=== PATIENT | female | born 1985 | race Caucasian/White ===

== ENCOUNTER 2021-02-14 13:43 | Emergency (ER) | payer OTHER, SELFPAY ==
--- NOTE | ~2021-02-14 | XR_ITS ---
EXAMINATION: XR FINGER, RIGHT CLINICAL INFORMATION: Evaluate for ostiomeatal COMPARISON: None TECHNIQUE: 3 views of the right middle finger. FINDINGS: The bones and soft tissues are normal. No fracture. Alignment is anatomic. Joint spaces are maintained. XR/XR finger RT min 2V IMPRESSION: Unremarkable right middle finger. Especially no bony erosive changes or periosteal thickening. No radiopaque foreign body seen either.
[2021-02-14 13:48] VITALS: BP 130/82; PULSE 79; RESP 16; TEMP 36.3; O2SAT 99; BMI 21.6
--- NOTE | 2021-02-14 14:24 | ED_ITS ---
HPI - General Adult General Chief complaint: General Medical Stated complaint: multiple complaints Time Seen by Provider: 02/14/21 14:19 Source: patient Mode of arrival: ambulatory Limitations: no limitations History of Present Illness MD complaint: ringing in ears, stomach pain, paronychia infection Onset (ago): day(s) (has felt unwell past couple of days but has been dealing with a paronychia R hand infection on keflex then bactrim since told she had fungal and klebsiella oxytoca in culture) Severity: moderate Pain Consistency: constant Relieving factors: none Exacerbating factors: none Associated symptoms: loss of appetite and weakness Treatments prior to arrival: other (bactrim since 02/10) Related Data Previous Rx's Medication Instructions Recorded levofloxacin 500 mg PO DAILY 7 Days #7 tab 02/14/21 Allergies Allergy/AdvReac Type Severity Reaction Status Date / Time No Known Allergies Allergy Verified 02/14/21 13:47 Review of Systems Review of Systems: Constitutional : No Fever, No Chills ENT/Mouth : No sore throat, No Rhinorrhea, ringing in her ears Eyes: No Eye Pain, No Swelling, No Redness Cardiovascular : No Chest Pain, No SOB Respiratory : No Cough, No Sputum Gastrointestinal : pos Nausea, No Vomiting, No Diarrhea, pos abdominal Pain Genitourinary : No Dysuria, No Hematuria Musculoskeletal : No joint pain, No Myalgias, No Joint Swelling Skin : No Skin Lesions, positive skin lesion on finger Neuro : pos Weakness, No Numbness, No Headache, pos dizziness Psych : No Anxiety, No Depression Heme/Lymph: No Bruising, No Bleeding,No Lymphadenopathy Endocrine : No Polyuria, No Polydipsia All other systems reviewed and are negative [facility] Past Medical History Attestation statement: The following information was validated with the patient. Medical History Paronychia Surgical History (Updated 02/14/21 @ 13:52 by Raiza Blue RN) H/O: hysterectomy Social History Social History (Updated 02/14/21 @ 15:18 by Laura Light DO) Patient Tobacco Use Status: Never used Tobacco Use of substances other than those prescribed or required for medical reasons: No Advance Directives: No Advance Directives Information Provided: Yes Patient : No Physical Exam Vital Signs: Vital Signs: Last Vital Signs Temp 97.4 F 02/14/21 13:48 Pulse 79 02/14/21 13:48 Resp 16 02/14/21 13:48 BP 130/82 02/14/21 13:48 Pulse Ox 99 02/14/21 13:48 Body Mass Index 21.6 Appearance: Alert. Oriented X3. No acute distress. Eyes: Pupils equal, round and reactive to light. ENT: Pharynx normal. Neck: Normal inspection. Neck supple. CVS: Normal heart rate and rhythm. Pulses normal. Respiratory: No respiratory distress. Breath sounds normal. Abdomen: Soft and mild epigastric ttp no rebound or guarding Skin: Skin warm and dry. Normal skin color. Normal skin turgor. Extremities: No lower extremity edema. No calf ttp R middle finger shiny area on proximal nail fold - nothing under the nail itself, no fluctuance felt, flat pocket felt no erythema/warmth/streaking Neuro: Oriented X 3. No motor deficit. No sensory deficit. Course Course Course Narrative: discussed with ID - sent pictures of culture and S to Dr. Sarah franklin - it is possible, would recommend levofloxacin for 7 days. WBC likely depressed due to antibiotics, LFTs stable mostly c/o some mild epigastric pain at this time will stop bactrim and start on levofloxacin for 7 days she is aware no exercising Medical Decision Making MDM Narrative Medical decision making narrative: 35 yo female with a prolonged R middle finger infection since February 02 had been on cephalexin for 4 days paronychia did not improve but it was not I/D she noted some streaking - switched to bactrim this Saturday 02/10 found to have relatively barbosa S klebsiella oxytoca had CRP drawn that was negative at this time, came in today because she has GI distress and some stomach pains, feels nauseated and dizzy, feels like she is not tolerating the bactrim well, will consult ID obtain labs, IVF, pepcid, dispo per results and findings, she is not toxic and does not appear septic at this time, finger is drained no ulcer/mass felt to suggest deeper abscess no streaking very minima l erythema, I did attempt to aspirate small area on prox nail fold but no purulence expressed she drained most of it at home with manual expression after soaks Lab Data Result diagrams: 02/14/21 14:46 07/17/21 14:46 Labs: Lab Results 02/14/21 02/14/21 02/14/21 Range/Units 14:38 14:46 14:46 WBC 4.6 L (4.8-10.8) X10*3/uL RBC 4.35 (4.20-5.50) X10*6/uL Hgb 13.1 (12.0-16.0) g/dl Hct 38.1 (37-47) % MCV 87.6 (80-98) fL MCH 30.1 (27.0-33.0) pg MCHC 34.4 (31.0-35.0) g/dl RDW 11.8 (11.0-16.0) % Plt Count 271 (160-400) X10*3/uL MPV 9.0 L (9.4-12.3) fL Immature Gran % (Auto) 0.2 (0.0-0.4) % Neut % (Auto) 42.4 L (45-73) % Lymph % (Auto) 42.2 H (20-40) % [place] % (Auto) 9.1 (2-11) % Eos % (Auto) 4.8 H (0-4) % Baso % (Auto) 1.3 (0-2) % Lymph # (Auto) 2.0 (1.2-4.9) X10*3/uL [place] # (Auto) 0.4 (0.1-1.2) X10*3/uL Eos # (Auto) 0.2 (0.0-0.4) X10*3/uL Baso # (Auto) 0.1 (0.0-0.2) X10*3/uL Abs Immat Gran (auto) 0.01 (0.00-0.03) X10*3/uL Absolute Neuts (auto) 2.0 (2.0-8.3) X10*3/uL Absolute Nucleated RBC 0.000 (0.0-0.012) X10*3/uL Nucleated RBC % (auto) 0.0 (0.0-0.2) /100WBC Sodium 139 (135-145) mmol/L Potassium 3.9 (3.3-5.1) mmol/L Chloride 104 (96-108) mmol/L Carbon Dioxide 28 (22-29) mmol/L Anion Gap 11 L (12-20) BUN 8 L (9-16) mg/dL Creatinine 0.94 (0.5-1.4) mg/dL Estim Creat Clear Calc 75.1 Estimated GFR > 60 Random Glucose 104 (60-115) mg/dL Calcium 9.6 (8.4-10.2) mg/dL Magnesium 2.2 (1.6-2.6) mg/dL Total Bilirubin 0.5 (0.0-1.0) mg/dL Direct Bilirubin 0.2 (0.0-0.5) mg/dL AST 19 (5-31) U/L ALT 9 (0-31) U/L Alkaline Phosphatase 44 (39-117) U/L Total Protein 7.6 (6.5-8.0) g/dL Albumin 4.7 (3.5-5.0) g/dL Lipase 35 (8-78) U/L Urine Color Cancelled Urine Appearance Cancelled Urine pH Cancelled Ur Specific [place] Cancelled Urine Protein Cancelled Urine Glucose (UA) Cancelled Urine Ketones Cancelled Urine Blood Cancelled Urine Nitrite Cancelled Ur Leukocyte Esterase Cancelled Urine Test (NEGATIVE) 02/14/21 02/14/21 Range/Units 14:46 14:47 WBC (4.8-10.8) X10*3/uL RBC (4.20-5.50) X10*6/uL Hgb (12.0-16.0) g/dl Hct (37-47) % MCV (80-98) fL MCH (27.0-33.0) pg MCHC (31.0-35.0) g/dl RDW (11.0-16.0) % Plt Count (160-400) X10*3/uL MPV (9.4-12.3) fL Immature Gran % (Auto) (0.0-0.4) % Neut % (Auto) (45-73) % Lymph % (Auto) (20-40) % [place] % (Auto) (2-11) % Eos % (Auto) (0-4) % Baso % (Auto) (0-2) % Lymph # (Auto) (1.2-4.9) X10*3/uL [place] # (Auto) (0.1-1.2) X10*3/uL Eos # (Auto) (0.0-0.4) X10*3/uL Baso # (Auto) (0.0-0.2) X10*3/uL Abs Immat Gran (auto) (0.00-0.03) X10*3/uL Absolute Neuts (auto) (2.0-8.3) X10*3/uL Absolute Nucleated RBC (0.0-0.012) X10*3/uL Nucleated RBC % (auto) (0.0-0.2) /100WBC Sodium (135-145) mmol/L Potassium (3.3-5.1) mmol/L Chloride (96-108) mmol/L Carbon Dioxide (22-29) mmol/L Anion Gap (12-20) BUN (9-16) mg/dL Creatinine (0.5-1.4) mg/dL Estim Creat Clear Calc Estimated GFR Random Glucose (60-115) mg/dL Calcium (8.4-10.2) mg/dL Magnesium (1.6-2.6) mg/dL Total Bilirubin (0.0-1.0) mg/dL Direct Bilirubin (0.0-0.5) mg/dL AST (5-31) U/L ALT (0-31) U/L Alkaline Phosphatase (39-117) U/L Total Protein (6.5-8.0) g/dL Albumin (3.5-5.0) g/dL Lipase (8-78) U/L Urine Color STRAW Urine Appearance CLEAR Urine pH 6.0 Ur Specific [place] <= 1.005 Urine Protein NEG Urine Glucose (UA) NEG Urine Ketones NEG Urine Blood NEG Urine Nitrite NEG Ur Leukocyte Esterase NEG Urine Test NEGATIVE (NEGATIVE) Discharge Plan Discharge Clinical Impression: Infection due to Klebsiella species Patient Disposition: Home, Self-Care Instructions: Paronychia (ED) Additional Instructions: return to ED for any worsening symptoms or concerns TAKE PROBIOTICS STOP TAKING BACTRIM, YOU DO NOT NEED TO SOAK THIS AREA ANYMORE YOU CANNOT EXERCISE WHILE ON THIS ANTIBIOTIC IT CAN CAUSE A TENDON INJURY Prescriptions: New levofloxacin 500 mg tablet 500 mg PO DAILY 7 Days Qty: 7 RF: 0 Referrals: Kae Ibrahim MD [Physician] - 2 weeks Stand Alone Forms: Work/School Release
[2021-02-14 14:54] LABS: Glucose Urine UA NEG (NEG); Leukocyte Esterase Urine NEG (NEG); Nitrite Urine NEG (NEG); Specific Gravity - Urine <= 1.005 (1.005-1.025); Urine Blood NEG (NEG); Urine Ketones NEG (NEG); Urine Protein NEG (NEG-TRACE)
[2021-02-14 14:55] LABS: Basophils Absolute Auto 0.1 X10*3/uL (0.0-0.2); Basophils Percent Auto 1.3 % (0-2); Eosinophils Absolute Auto 0.2 X10*3/uL (0.0-0.4); Eosinophils Percent Auto 4.8 % (0-4); Hematocrit 38.1 % (37-47); Hemoglobin 13.1 g/dl (12.0-16.0); Imm Gran Abs Auto 0.01 X10*3/uL (0.00-0.03); Imm Gran Pct Auto 0.2 % (0.0-0.4); Lymphocytes Percent Auto 42.2 % (20-40); MANUAL DIFF FLAG NO; Mean Corpuscular HGB Conc 34.4 g/dl (31.0-35.0); Mean Corpuscular Hemoglobin 30.1 pg (27.0-33.0); Mean Corpuscular Volume 87.6 fL (80-98); Monocytes Absolute Auto 0.4 X10*3/uL (0.1-1.2); Monocytes Percent Auto 9.1 % (2-11); Neutrophils Percent Auto 42.4 % (45-73); Platelet Count 271 X10*3/uL (160-400); Red Blood Count 4.35 X10*6/uL (4.20-5.50); Red Cell Distribution Width 11.8 % (11.0-16.0); White Blood Count 4.6 X10*3/uL (4.8-10.8)
[2021-02-14 14:56] LABS: Appearance Urine CLEAR; Color Urine STRAW
[2021-02-14 14:57] LABS: UPreg QC Valid YES; Urine Pregnancy NEGATIVE (NEGATIVE)
[2021-02-14] MEDS: Famotidine/PF 20 MG/2 ML VIAL IVPUSH (15:03)
[2021-02-14] MEDS: 0.9 % Sodium Chloride 1,000 ML 999 ML IVCONT (15:04)
[2021-02-14 15:17] LABS: Alanine Aminotransferase 9 U/L (0-31); Albumin Level 4.7 g/dL (3.5-5.0); Alkaline Phosphatase 44 U/L (39-117); Anion Gap 11 (12-20); Aspartate Amino Transferase 19 U/L (5-31); Bilirubin Direct 0.2 mg/dL (0.0-0.5); Bilirubin Total 0.5 mg/dL (0.0-1.0); Blood Urea Nitrogen 8 mg/dL (9-16); Calcium 9.6 mg/dL (8.4-10.2); Carbon Dioxide 28 mmol/L (22-29); Chloride 104 mmol/L (96-108); Creatinine Clr Calc Pharmacy 75.1; Estimated Glomerular Filt Rate > 60; Glucose Random 104 mg/dL (60-115); Lipase 35 U/L (8-78); Magnesium 2.2 mg/dL (1.6-2.6); Potassium 3.9 mmol/L (3.3-5.1); Sodium 139 mmol/L (135-145); Total Protein 7.6 g/dL (6.5-8.0)
== END 2021-02-14 16:32 | disposition home or self-care (01) ==
PROVIDERS: Emergency Provider Emergency Medicine
DX: L03.011 Cellulitis of right finger (principal); B96.89 Other specified bacterial agents as the cause of diseases classified elsewhere; R10.13 Epigastric pain
CPT/HCPCS: 36415; 73140; 80048; 80076; 81003; 81025; 83690; 83735; 85025; 87040; 96361; 96374; 99283; 99284

== ENCOUNTER → 2021-05-12 08:48 | Outpatient (BNVA) | payer OTHER, SELFPAY | PROVIDERS: Visit Provider Physician Assistant ==

== ENCOUNTER 2021-05-27 09:39 | Outpatient (REF) | payer OTHER, SELFPAY ==
--- NOTE | ~2021-05-27 | CT_ITS ---
EXAMINATION: CT ABDOMEN AND PELVIS WITH CONTRAST CLINICAL INFORMATION: Abdominal pain. COMPARISON: None TECHNIQUE: Multidetector volumetric images were obtained from the superior aspect of the liver through the pubic symphysis following administration 85 mL of Omnipaque 350 intravenous contrast. Sagittal and coronal reformatted images were obtained on the technologist's workstation. Oral contrast: No. This CT examination was performed using dose optimization techniques as appropriate, variously including the following: *Automated exposure control *Adjustment of mA and/or kV according to patient size (this includes techniques or standardized protocols for targeted exams where dose is matched to indication/reason for exam; i.e. extremities or head) *Use of iterative reconstruction technique DLP: 299 mGy-cm FINDINGS: LUNG BASES: The visualized lung bases are unremarkable. LIVER, GALLBLADDER, AND BILIARY TREE: The liver is normal in size, shape, and attenuation. No focal hepatic lesion or biliary ductal dilatation is present. The gallbladder is unremarkable with no evidence of radiopaque gallstones, gallbladder wall thickening, or obvious pericholecystic inflammatory changes. PANCREAS: Unremarkable. SPLEEN: Unremarkable. ADRENAL GLANDS: Unremarkable. KIDNEYS AND URETERS: The kidneys are normal in size, shape, and attenuation. No hydronephrosis, hydroureter, or calculi seen. No perinephric stranding. BLADDER: Unremarkable. GASTROINTESTINAL TRACT: There is stool throughout the colon suggestive of constipation. There is question of wall thickening of the duodenum and proximal jejunum. The small and large bowel are otherwise unremarkable. The appendix is not identified. No inflammatory changes are seen in the right lower quadrant. ABDOMINAL WALL: No significant hernia is appreciated. LYMPH NODES: Normal. VASCULAR: Unremarkable. PELVIC VISCERA: The uterus may have been removed. No pelvic mass is seen. OSSEOUS STRUCTURES: Unremarkable. CT/CT abdomen pelvis w con IMPRESSION: Constipation. Question wall thickening of the duodenum and proximal jejunum or enteritis.
[2021-05-27] MEDS: iohexoL 350 MG/ML 100 ML INFUS..BTL IV (10:34)
== END 2021-05-27 09:40 | disposition home or self-care (01) ==
LOC: HO.CT 09:39
PROVIDERS: PCP Nurse Practitioner Family; Visit Provider Physician Assistant
DX: R10.9 Unspecified abdominal pain (principal); K62.5 Hemorrhage of anus and rectum
CPT/HCPCS: 74177; Q9967

== ENCOUNTER 2021-07-01 07:14 | Day surgery (SDC) | payer OTHER, SELFPAY ==
[2021-06-22 09:24] VITALS: BMI 21.6
--- NOTE | 2021-06-30 10:12 | HO.ANESPROP2 ---
Documented by User: Sweetie العلي NP 06/30/21 10:13 HPI - Anesthesia Eval Consult details Narrative: 35yo F for Upper Endoscopy and Colonoscopy PMFSH Active Problems Active Problems: All Active Problems (Updated 06/22/21 @ 09:22 by Laurel Coto RN) Abdominal pain (Acute) Rectal bleeding (Acute) Past Medical History Medical History Asthma COVID-19 vaccine series completed DIC (disseminated intravascular coagulation) GERD (gastroesophageal reflux disease) History of in vitro fertilization History of infection due to ESBL Klebsiella oxytoca Paronychia Surgical History Surgical History H/O: hysterectomy Hx of wisdom tooth extraction Social History Social History (Updated 06/22/21 @ 09:29 by Laurel Coto RN) Are you a primary direct care specialist to a significant other at home: No Do you presently have visiting nurse or other home services: No Alcohol intake: current Patient Tobacco Use Status: Never used Tobacco Use of substances other than those prescribed or required for medical reasons: No Have you been hit, kicked, punched, or otherwise hurt by someone within the past year? If so, by whom?: No Are you DNR?: No Advance Directives: No (states would be but no official HCP form) Advance Directives Information Provided: Yes (informational brochure mailed) Advance Directives on File: No Recently lost weight without trying: No Eating poorly because of decreased appetite: No Nutrition Risks: No Nutritional Risk Patient : No FDLMP: N/A : No Poor oral hygiene: No Current occupational status: employed Current occupation: FT Meds Allergies Allergy/AdvReac Type Severity Reaction Status Date / Time sulfamethoxazole AdvReac Severe nausea/vomiting/severe Verified 07/01/21 07:44 [From Bactrim] GI pain trimethoprim [From Bactrim] AdvReac Severe nausea/vomiting/severe Verified 07/01/21 07:44 GI pain hydrocodone AdvReac Intermediate Nausea and Verified 06/22/21 09:14 Vomiting Home Medications Medication Instructions Recorded Confirmed Last Taken Type mometasone-formoterol HFA 50 mcg-5 1 puff INHALATION BID PRN 05/12/21 06/22/21 Unknown History mcg/actuation aerosol inhaler (Dulera) albuterol sulfate 90 mcg/actuation 2 puff INHALATION Q4-6H PRN 06/22/21 06/22/21 Unknown History aerosol inhaler (Ventolin HFA) Exam Exam Date and Time: June 30, 2021 1012 Height,Weight and Vital Signs: Height 5 ft 5 in Weight 58.967 kg Pertinent Lab Results Pertinent Lab Results: Laboratory Tests 02/14/21 02/14/21 14:46 14:46 WBC 4.6 L Hgb 13.1 Hct 38.1 Plt Count 271 Sodium 139 Potassium 3.9 Chloride 104 Carbon Dioxide 28 BUN 8 L Creatinine 0.94 Assessment and Plan Assessment Anesthesia Assessment: Chart Reviewed Documented by User: Janice Drake MD 07/01/21 08:24 [facility] Past Medical History Medical History Asthma COVID-19 vaccine series completed DIC (disseminated intravascular coagulation) GERD (gastroesophageal reflux disease) History of in vitro fertilization History of infection due to ESBL Klebsiella oxytoca Paronychia Family History Family history of problems with anesthesia: No Surgical History Surgical History H/O: hysterectomy Hx of wisdom tooth extraction History of Problems with Anesthesia: No Social History Social History (Updated 06/22/21 @ 09:29 by Laurel Coto RN) Are you a primary direct care specialist to a significant other at home: No Do you presently have visiting nurse or other home services: No Alcohol intake: current Patient Tobacco Use Status: Never used Tobacco Use of substances other than those prescribed or required for medical reasons: No Have you been hit, kicked, punched, or otherwise hurt by someone within the past year? If so, by whom?: No Are you DNR?: No Advance Directives: No (states would be but no official HCP form) Advance Directives Information Provided: Yes (informational brochure mailed) Advance Directives on File: No Recently lost weight without trying: No Eating poorly because of decreased appetite: No Nutrition Risks: No Nutritional Risk Patient : No FDLMP: N/A : No Poor oral hygiene: No Current occupational status: employed Current occupation: FT Meds Allergies Allergy/AdvReac Type Severity Reaction Status Date / Time sulfamethoxazole AdvReac Severe nausea/vomiting/severe Verified 07/01/21 07:44 [From Bactrim] GI pain trimethoprim [From Bactrim] AdvReac Severe nausea/vomiting/severe Verified 07/01/21 07:44 GI pain hydrocodone AdvReac Intermediate Nausea and Verified 06/22/21 09:14 Vomiting Home Medications Medication Instructions Recorded Confirmed Last Taken Type mometasone-formoterol HFA 50 mcg-5 1 puff INHALATION BID PRN 05/12/21 06/22/21 Unknown History mcg/actuation aerosol inhaler (Dulera) albuterol sulfate 90 mcg/actuation 2 puff INHALATION Q4-6H PRN 06/22/21 06/22/21 Unknown History aerosol inhaler (Ventolin HFA) Exam Airway Mallampati Class: I TM Dist: >3cm Neck ROM: Full Heart: rrr Lungs: cta Assessment and Plan Assessment Anesthesia Assessment: Anesthesia Plan Discussed and Chart Reviewed Final Anesthetic Review Family History of Problems with Anesthesia: No History of Problems with Anesthesia: No NPO: Yes ASA Class: II Final Preanesthetic Review: No Changes in Pt Med Stat, Meds/Allgs Chart Reviewed and Consent Obtained/Reviewed Patient Risk: Intermediate Procedure Risk: Intermediate Anesthetic Plan Anesthetic Plan: MAC: Disposition: Standard PACU
[2021-07-01 07:44] VITALS: BP 107/62; PULSE 74; RESP 16; TEMP 36.9; O2SAT 100
[2021-07-01] MEDS: Lactated Ringers 1,000 ML 100 ML IVCONT (07:58)
--- NOTE | 2021-07-01 08:32 | P.HPSUR_ITS ---
Pre-Procedural Eval Section A Date of Service: 07/01/21 Section B Chief Complaint: Rectal Bleeding, Abdominal pain Relevant Family History (Specify if Yes): No Relevant Social History: None Present Medications: see Short Stay Collaborative assessment Medical History: Significant History (Asthma COVID-19 vaccine series completed DIC (disseminated intravascular coagulation) GERD (gastroesophageal reflux disease) History of in vitro fertilization History of infection due to ESBL Klebsiella oxytoca Paronychia) History of Previous Operations: Relevant previous surgery/procedure and date(s) (H/O: hysterectomy Hx of wisdom tooth extraction) Allergies: Allergies Allergy/AdvReac Type Severity Reaction Status Date / Time sulfamethoxazole AdvReac Severe nausea/vomiting/severe Verified 07/01/21 07:44 [From Bactrim] GI pain trimethoprim [From Bactrim] AdvReac Severe nausea/vomiting/severe Verified 07/01/21 07:44 GI pain hydrocodone AdvReac Intermediate Nausea and Verified 06/22/21 09:14 Vomiting Review of Systems Sugical H&P ROS: Negative: Constitution, Cardiovascular, Respiratory, Neurological, Psychiatric, Hem-Onc, Allergic/Immunologic, Gastrointestinal, Genitourinary, Musculoskeletal, Integumentary, Endocrine and Eyes/Ears/Nose/Thr oat Exam Surgical H&P Exam: Normal: HEENT, Normal: Heart, Normal: Lungs, Normal: Extremities, Normal: Abdomen, Normal: Skin and Normal: Neurological Plan Diagnosis/Plan: Unchanged I have reviewed the history and physical and performed a pertinent physical examination on my patient. No changes have occurred unless specified.
--- NOTE | 2021-07-01 08:46 | PM.OP ---
Brief Operative Note Date of Service: 07/01/21 Pre-op diagnosis: altered bowel habit, rectal bleeding Post-op diagnosis: same Procedure: see op note Surgeon: Aniya Cueva MD Anesthesia: MAC Was an Noodle [employer] Maker used for this Procedure?: No Estimated blood loss (mL): 0 Condition: stable Disposition: PACU
--- NOTE | 2021-07-01 08:46 | W.PM.OPN ---
Operative Note Operative Note Date of Service: 07/01/21 Narrative: Operative Information Procedure Description: EGD, Colonoscopy FLEXIBLE TRANSORAL UPPER GASTROINTESTINAL ENDOSCOPY AND COLONOSCOPY PROCEDURE NOTE UPPER ENDOSCOPY Consent: Indications for the procedure and potential complications of bleeding, perforation, reaction to medications and missed diagnosis were discussed with the patient and informed consent was obtained. Instrument: Olympus GIF H 190 J mid size upper endoscope Monitoring: Vital signs and clinical assessment, continuous EKG monitoring, Pulse oximetry, Carbon Dioxide monitoring and blood pressure monitoring were done throughout the procedure. Procedure: The patient was placed in the left lateral decubitis position and pre-procedure medications were administered and a bite block was placed. The endoscope was inserted into the mouth and advanced under direct vision to the third part of duodenum. A careful inspection was made as the upper endoscope was withdrawn including a retroflexed examination of the proximal stomach; Findings and interventions are described below. Findings: Larynx:normal Esophagus: GE junction at 38 cm, diaphragm hiatus at 38 cm, esophagitis LA grade A around the GEJ, bx taken, also random esophageal bx taken due to granular appearance Stomach: streaky erythema in antrum. Biopsies were obtained. Grade 2 flap valve on retroflexed examination of the cardia. Duodenum: Normal bulb and descending duodenum, bx taken Intervention: Biopsies as noted above COLONOSCOPY Instrument: Olympus variable stiffness pediatric scope 190L Colonoscopy Monitoring: Vital signs and clinical assessment, continuous EKG monitoring, Pulse oximetry, Carbon Dioxide monitoring and blood pressure monitoring were done throughout the procedure. Colon withdrawal time was 13 minutes. Procedure: The patient was placed in the left lateral decubitis position and pre-procedure medications were administered. After a digital rectal examination of the ano-rectum, the video colonoscope was inserted into the rectum and advanced through the colon to the cecum/TI. The colonoscope was slowly withdrawn in a retrograde panoramic fashion and the colon mucosa was carefully examined including a retroflexed view of the rectum. Findings and interventions are described below. Procedure Difficulty:easy Findings: Terminal Ileum-mild ileitis and few erosions, bx taken colon bx taken from right colon and then left/transverse and rectal in separate jars Cecum:normal Ascending Colon: normal Transverse Colon -normal Descending Colon:normal Sigmoid Colon: normal Rectum: Retroflexion with small internal hemorrhoids, grade I Anorectum - normal Colon preparation: [place] Bowel Preparation Scale Right colon; 2 Transverse colon: 3 Left colon; 3 (0 = Unprepared colon segment with mucosa not seen due to solid stool that cannot be cleared. 1 = Portion of mucosa of the colon segment seen, but other areas of the colon segment not well seen due to staining, residual stool and/or opaque liquid. 2 = Minor amount of residual staining, small fragments of stool and/or opaque liquid, but mucosa of colon segment seen well. 3 = Entire mucosa of colon segment seen well with no residual staining, small fragments of stool or opaque liquid) Impression and Post Procedure Diagnosis: Endoscopy Findings: esophagitis gastritis Colonoscopy Findings: ileitis internal hemorrhoids Plan: Await Pathology results Repeat Colonoscopy in 10 years or earlier if clinically indicated High fiber diet leaflet avoid straining at stool, epsom salts and sitz bath, anusol supps or cream check nsaid history consider trial of PPI consider CTe or VCE for further Ix of ileitis Above findings were reviewed with the patient and relevant handouts were provided if indicated.
[2021-07-01 09:14] VITALS: BP 93/47; PULSE 68; RESP 18; TEMP 37.5; O2SAT 99
[2021-07-01 09:29] VITALS: BP 101/64; PULSE 62; RESP 16; TEMP 36.7; O2SAT 100
== END 2021-07-01 10:10 | disposition home or self-care (01) ==
PROVIDERS: PCP Nurse Practitioner Family; Visit Provider Internal Medicine Gastroenterology
PROC: (CPT 45380; principal; 2021-07-01 08:20)
DX: K62.5 Hemorrhage of anus and rectum (principal); R19.4 Change in bowel habit; K50.00 Crohn's disease of small intestine without complications; K64.0 First degree hemorrhoids; K29.50 Unspecified chronic gastritis without bleeding; K20.80 Other esophagitis without bleeding; K44.9 Diaphragmatic hernia without obstruction or gangrene; K21.9 Gastro-esophageal reflux disease without esophagitis; J45.909 Unspecified asthma, uncomplicated; Z79.899 Other long term (current) drug therapy; Z90.710 Acquired absence of both cervix and uterus
CPT/HCPCS: 45380; 43239; 88305; 88342

== ENCOUNTER → 2021-07-15 08:17 | Outpatient (BNVA) | payer OTHER, SELFPAY | PROVIDERS: Visit Provider Internal Medicine Gastroenterology | DX: K52.9 Noninfective gastroenteritis and colitis, unspecified (principal); K50.90 Crohn's disease, unspecified, without complications | CPT/HCPCS: 91110 ==

== ENCOUNTER 2021-07-30 15:30 | Outpatient (REF) | payer OTHER, SELFPAY ==
[2021-08-03 20:52] LABS: IgA 185 mg/dL (47-310); IgG 1000 mg/dL (600-1640); IgM 219 mg/dL (50-300)
[2021-08-04 18:12] LABS: Histamine Plasma <1.5 ng/mL (< OR = 1.8)
== END 2021-07-30 15:31 | disposition home or self-care (01) ==
LOC: HO.LAB 15:30
PROVIDERS: PCP Nurse Practitioner Family; Visit Provider Internal Medicine Gastroenterology
DX: R10.9 Unspecified abdominal pain (principal); K63.9 Disease of intestine, unspecified
CPT/HCPCS: 36415; 82784; 83088; 83520; 86003

== ENCOUNTER 2021-07-31 11:50 | Outpatient (REF) | payer OTHER, SELFPAY ==
[2021-08-05 04:52] LABS: Lactoferrin, Fecal, Quant. <30.0 mcg/mL
== END 2021-07-31 11:51 | disposition home or self-care (01) ==
LOC: HO.LNP 11:50
PROVIDERS: Visit Provider Internal Medicine Gastroenterology
DX: K63.9 Disease of intestine, unspecified (principal)
CPT/HCPCS: 83631

== ENCOUNTER 2021-12-23 12:05 | Outpatient (REF) | payer OTHER, SELFPAY ==
--- NOTE | ~2021-12-23 | XR_ITS ---
EXAMINATION: XR ABDOMEN KUB CLINICAL INDICATION: Constipation. COMPARISON: CT abdomen/pelvis dated from 05/27/2021. TECHNIQUE: AP view of the abdomen. FINDINGS: The bowel gas pattern is normal with no evidence of ileus or obstruction. No unusual soft tissue calcifications are noted. The bones are unremarkable. XR/XR KUB IMPRESSION: Nonobstructive bowel gas pattern. No significant stool burden.
== END 2021-12-23 12:06 | disposition home or self-care (01) ==
LOC: HO.XRAY 12:05
PROVIDERS: PCP Nurse Practitioner Family; Visit Provider Physician Assistant
DX: K59.00 Constipation, unspecified (principal)
CPT/HCPCS: 74018

== ENCOUNTER → 2022-01-05 11:34 | Outpatient (BNVA) | payer OTHER, SELFPAY | PROVIDERS: PCP Nurse Practitioner Family; Visit Provider Physician Assistant | DX: R10.9 Unspecified abdominal pain (principal) ==

== ENCOUNTER 2022-08-19 09:13 | Outpatient (REF) | payer OTHER, SELFPAY ==
--- NOTE | ~2022-08-19 | MR_ITS ---
EXAMINATION: MRI ABDOMEN AND PELVIS (MR ENTEROGRAPHY) WITH AND WITHOUT CONTRAST CLINICAL INFORMATION: K63.9 - Disease of intestine, unspecified COMPARISON: No pertinent priors currently available. TECHNIQUE: Multiple routine MRI sequences through the abdomen and pelvis were obtained on a high-field 1.5 Norah MRI. Pre-and postcontrast images with 6 mL of gadavist intravenous contrast was utilized. Bowel distention with Breeza oral contrast was given prior to imaging. FINDINGS: The small bowel was well distended with oral contrast. The bowel motion peristalsis did not significantly degrade the interpretation of the study. I do not appreciate any persistent area of small bowel wall thickening. No abnormal region of small bowel mucosal enhancement or perienteric inflammatory change. No interloop abscess seen and no focal conglomeration of bowel loops. Oral contrast administered to the colon by the time of the study. I do not appreciate any obvious colonic wall thickening or pericolonic enhancement. Subtle colonic mucosal enhancement would be difficult due to the presence of T1 bright stool but no significant abnormal colonic wall enhancement was identified either. Although tailored to evaluate the bowel, I do not appreciate any focal abnormality within the visualized portions of the liver, gallbladder, kidneys, adrenals, pancreas, or spleen. Bladder is relatively distended but otherwise unremarkable MR/MR pelvis wo/w con IMPRESSION: I do not appreciate any abnormal small bowel wall thickening or perienteric inflammatory change. No interloop abscess or conglomeration of bowel loops.
--- NOTE | ~2022-08-19 | MR_ITS ---
EXAMINATION: MRI ABDOMEN AND PELVIS (MR ENTEROGRAPHY) WITH AND WITHOUT CONTRAST CLINICAL INFORMATION: K63.9 - Disease of intestine, unspecified COMPARISON: No pertinent priors currently available. TECHNIQUE: Multiple routine MRI sequences through the abdomen and pelvis were obtained on a high-field 1.5 Norah MRI. Pre-and postcontrast images with 6 mL of gadavist intravenous contrast was utilized. Bowel distention with Breeza oral contrast was given prior to imaging. FINDINGS: The small bowel was well distended with oral contrast. The bowel motion peristalsis did not significantly degrade the interpretation of the study. I do not appreciate any persistent area of small bowel wall thickening. No abnormal region of small bowel mucosal enhancement or perienteric inflammatory change. No interloop abscess seen and no focal conglomeration of bowel loops. Oral contrast administered to the colon by the time of the study. I do not appreciate any obvious colonic wall thickening or pericolonic enhancement. Subtle colonic mucosal enhancement would be difficult due to the presence of T1 bright stool but no significant abnormal colonic wall enhancement was identified either. Although tailored to evaluate the bowel, I do not appreciate any focal abnormality within the visualized portions of the liver, gallbladder, kidneys, adrenals, pancreas, or spleen. Bladder is relatively distended but otherwise unremarkable MR/MR abdomen wo/w con IMPRESSION: I do not appreciate any abnormal small bowel wall thickening or perienteric inflammatory change. No interloop abscess or conglomeration of bowel loops.
== END 2022-08-19 09:14 | disposition home or self-care (01) ==
LOC: HO.MRI 09:13
PROVIDERS: Visit Provider Internal Medicine Gastroenterology
DX: K63.9 Disease of intestine, unspecified (principal)
CPT/HCPCS: 72197; 74183; A9585

== ENCOUNTER 2023-06-20 10:28 | Outpatient (AMB) | payer OTHER, SELFPAY ==
[2023-06-20 10:36] VITALS: BP 114/67; PULSE 78; BMI 21.9
--- NOTE | 2023-06-20 10:36 | A.OFFVIS_ITS ---
Intake Vital Signs 06/20/23 10:36 Height 5 ft 5 in Weight 131 lb 6.328 oz BMI 21.9 BP 114/67 Blood Pressure Location Lt brachial Position Sitting Pulse 78 Intake Visit Reasons: Rectal bleeding Intake Note: Patient presents to in office visit today in follow up of constipation and rectal bleeding. CC: Patient reports that she usually goes from diarrhea to constipation but lately its been more constipation with occasional rectal bleeding. She also reports feeling nauseous, GERD, and LLQ abdominal sharp stabbing pain, and epigastric pain. Head Of Physics Required: No Accompanied by: Self / Same As Patient Allergies sulfamethoxazole [From Bactrim] Adverse Reaction (Severe, Verified 06/20/23 10:39) nausea/vomiting/severe GI pain trimethoprim [From Bactrim] Adverse Reaction (Severe, Verified 06/20/23 10:39) nausea/vomiting/severe GI pain hydrocodone Adverse Reaction (Intermediate, Verified 06/20/23 10:39) Nausea and Vomiting HPI Rectal bleeding HPI Details 37 yr old f here for f/u RECAP: CT: 05/21: enteritis, constipation EGD/colon: gastritis, esophagitis, ileitis, erosions VCE: patchy erythema MRE: 08/2022--- nml TESTS: fecal lactoferrin: nml RAST neg INTERIM: She has been oscillitating up and down in terms of her abdominal sx she had child by surrogate over summer which was stressful she has been having more constipation and taking laxative she feels like stool is stuck in her left side and feels like constricted sensation stool is like ribbons coming out she still has joint stiffness raynauds like attacks in hands and feet canker sores still occur appetite is up and down weight is stable when passing stool can feel like a blockage down below EXAM: GENERAL: The patient is well developed and nontoxic. VITAL SIGNS:see workflow HEENT: Nonicteric sclerae, PERRLA, EOMI. Oropharynx clear. Moist mucous membranes. Conjunctivae appear well perfused. No thyroid mass. CHEST: Chest wall is nontender. HEART: Regular rate and rhythm without murmurs. LUNGS: Clear to auscultation bilaterally. ABDOMEN: Soft, positive bowel sounds, tender epigastrium, no organomegaly.no flank tenderness SKIN: No rash, no excessive bruising, petechiae, or purpura. NEUROLOGIC: Cranial nerves II-XII intact without motor/sensory deficit. A/P: 1/ main concern would be crohns, ddx: eo sinophilic enteritis, autoimmune enteritis, less likely infiltrative disease like amyloid,s lupus, lymphoma--she may also have pelvic floor dysfn or rectocele related to prior c section PLAN: 1/ repeat labs, incl stool lactoferrin 2/ MR defecography 3/ trial of apriso PFSH Medical History History of infection due to ESBL Klebsiella oxytoca History of in vitro fertilization GERD (gastroesophageal reflux disease) COVID-19 vaccine series completed Asthma DIC (disseminated intravascular coagulation) Paronychia Surgical History Hx of colonoscopy History of esophagogastroduodenoscopy (EGD) Hx of wisdom tooth extraction H/O: hysterectomy Social History Are you a primary pediatric care coordinator to a significant other at home: No Do you presently have visiting nurse or other home services: No Alcohol intake: current Patient Tobacco Use Status: Never used Tobacco Current occupational status: employed Current occupation: FT Physical Exam Vital Signs: BMI result Body Mass Index 21.9 Assessment & Plan Assessment & Plan (1) Enteropathy: Code(s): K63.9 - Disease of intestine, unspecified Plan: PLAN: 1/ repeat labs, incl stool lactoferrin 2/ MR defecography 3/ trial of apriso (2) Abdominal pain: Comment: Right lower quadrant pain changes in intensity, wonders, question adhesions Somewhat reluctant to steroids. Taking probiotic trial of Citrucel Code(s): R10.9 - Unspecified abdominal pain Plan: PLAN: 1/ repeat labs, incl stool lactoferrin 2/ MR defecography 3/ trial of apriso (3) Constipation: Code(s): K59.00 - Constipation, unspecified Plan: PLAN: 1/ repeat labs, incl stool lactoferrin 2/ MR defecography 3/ trial of apriso Plan PLAN: 1/ repeat labs, incl stool lactoferrin 2/ MR defecography 3/ trial of apriso Coding Level of Care Code Est Pt Level 4 (88227) Diagnoses Enteropathy K63.9 Abdominal pain R10.9 Constipation K59.00
== END 2023-06-20 11:01 | disposition home or self-care (01) ==
PROVIDERS: PCP Nurse Practitioner Family; Visit Provider Internal Medicine Gastroenterology
DX: K63.9 Disease of intestine, unspecified (principal); R10.9 Unspecified abdominal pain; K59.00 Constipation, unspecified
CPT/HCPCS: 99214

== ENCOUNTER 2023-06-20 10:28 | Outpatient (REF) | payer OTHER, SELFPAY ==
[2023-06-20 11:40] LABS: MANUAL DIFF FLAG NO
[2023-06-20 11:55] LABS: Basophils Absolute Auto 0.1 X10*3/uL (0.0-0.2); Eosinophils Absolute Auto 0.6 X10*3/uL (0.0-0.4); Eosinophils Percent Auto 8.9 % (0-4); Hematocrit 38.3 % (37.0-47.0); Hemoglobin 13.3 g/dl (12.0-16.0); Imm Gran Abs Auto 0.01 X10*3/uL (0.00-0.03); Imm Gran Pct Auto 0.1 % (0.0-0.4); Lymphocytes Absolute Auto 2.1 X10*3/uL (1.2-4.9); Lymphocytes Percent Auto 31.2 % (20-40); Mean Corpuscular HGB Conc 34.7 g/dl (31.0-35.0); Mean Corpuscular Hemoglobin 29.8 pg (27.0-33.0); Mean Corpuscular Volume 85.7 fL (80.0-98.0); Mean Platelet Volume 8.7 fL (9.4-12.3); Monocytes Absolute Auto 0.5 X10*3/uL (0.1-1.2); Monocytes Percent Auto 7.5 % (2-11); Neutrophils Absolute Auto 3.5 x10*3/uL (2.0-8.3); Neutrophils Percent Auto 51.3 % (45-73); Platelet Count 295 X10*3/uL (160-400); Red Blood Count 4.47 X10*6/uL (4.20-5.50); Red Cell Distribution Width 11.5 % (11.0-16.0); White Blood Count 6.8 X10*3/uL (4.8-10.8)
[2023-06-20 12:39] LABS: Erythrocyte Sedimentation Rate 13 MM/HR (0-20)
[2023-06-20 13:08] LABS: Alanine Aminotransferase 10 U/L (0-31); Albumin Level 4.4 g/dL (3.5-5.0); Alkaline Phosphatase 38 U/L (39-117); Anion Gap 10 (12-20); Aspartate Amino Transferase 19 U/L (5-31); Bilirubin Total 0.4 mg/dL (0.0-1.0); Blood Urea Nitrogen 10 mg/dL (9-16); C Reactive Protein < 0.10 mg/dL (< or = 0.50); Calcium 9.7 mg/dL (8.4-10.2); Carbon Dioxide 28 mmol/L (22-29); Chloride 103 mmol/L (96-108); Estimated Glomerular Filt Rate > 60; Ferritin 51 ng/mL (10-122); Glucose Random 92 mg/dL (60-115); Potassium 4.1 mmol/L (3.3-5.1); Sodium 137 mmol/L (135-145); Total Protein 7.4 g/dL (6.5-8.0)
[2023-06-20 13:18] LABS: Folate 12.6 ng/mL (> or = 4.0); Vitamin B12 674 pg/mL (200-900)
== END 2023-06-20 10:29 | disposition home or self-care (01) ==
LOC: HO.LAB 10:28
PROVIDERS: PCP Nurse Practitioner Family; Visit Provider Internal Medicine Gastroenterology
DX: R10.9 Unspecified abdominal pain (principal); K63.9 Disease of intestine, unspecified; K59.00 Constipation, unspecified; K62.5 Hemorrhage of anus and rectum; K75.81 Nonalcoholic steatohepatitis (NASH)
CPT/HCPCS: 36415; 80053; 82607; 82728; 82746; 85025; 85652; 86140

== ENCOUNTER 2023-09-04 12:06 | Emergency (ER) | payer OTHER, SELFPAY ==
--- NOTE | ~2023-09-04 | XR_ITS ---
EXAMINATION: XR ABDOMEN KUB CLINICAL INDICATION: Constipation. Question small bowel obstruction. COMPARISON: Previous KUB November 2021 TECHNIQUE: AP view of the abdomen. FINDINGS: Nonobstructive bowel gas pattern. No free air. No suspicious calcifications. Normal bony structures XR/XR KUB IMPRESSION: Nonobstructive bowel gas pattern.
[2023-09-04 12:21] VITALS: BP 187/73; PULSE 73; RESP 17; TEMP 36.4; O2SAT 99; BMI 22.1
--- NOTE | 2023-09-04 12:27 | ED_ITS ---
HPI - General Adult General Chief complaint: Abdominal Pain Stated complaint: Sharp abd pain, constipation Time Seen by Provider: 09/04/23 18:40 Source: patient Mode of arrival: ambulatory Limitations: no limitations History of Present Illness HPI narrative: Patient with enteropathy questionable Crohn disease recently started on mesalamine a month ago for last 4 days patient not able to move her bowels not eating much had a KUB done which showed normal gas pattern no stool burden patient feel nauseated no blood in her stool Related Data Home Medications Medication Instructions Recorded Confirmed albuterol sulfate 90 mcg/actuation 2 puff inhalation Q4-6H PRN 06/22/21 06/22/21 aerosol inhaler (Ventolin HFA) Shortness Of Breath valacyclovir 1 gram tablet 4,000 mg PO ONCE 01/05/22 Previous Rx's Medication Instructions Recorded pantoprazole 20 mg tablet,delayed 20 mg PO DAILY #90 tabs 07/19/22 release mesalamine 0.375 gram 1.5 g (4 x 0.375 gram) PO QAM 90 07/08/23 capsule,extended release 24 hr days #360 caps (Apriso) ondansetron 4 mg disintegrating 4 mg PO Q6-8H PRN nausea and 09/04/23 tablet vomiting #15 tabs Allergies Allergy/AdvReac Type Severity Reaction Status Date / Time sulfamethoxazole AdvReac Severe nausea/vomiting/severe Verified 06/20/23 10:39 [From Bactrim] GI pain trimethoprim [From Bactrim] AdvReac Severe nausea/vomiting/severe Verified 06/20/23 10:39 GI pain hydrocodone AdvReac Intermediate Nausea and Verified 06/20/23 10:39 Vomiting Review of Systems 2 Review of Systems: Yes all other systems are reviewed and are negative PMFSH Past Medical History Medical History History of infection due to ESBL Klebsiella oxytoca History of in vitro fertilization GERD (gastroesophageal reflux disease) COVID-19 vaccine series completed Asthma DIC (disseminated intravascular coagulation) Paronychia Surgical History Hx of colonoscopy History of esophagogastroduodenoscopy (EGD) Hx of wisdom tooth extraction H/O: hysterectomy Social History Social History Are you a primary day care aide to a significant other at home: No Do you presently have visiting nurse or other home services: No Alcohol intake: current Patient Tobacco Use Status: Never used Tobacco Advance Directives: No Advance Directives Information Provided: No Current occupational status: employed Current occupation: FT Physical Exam ED Vital Signs: Vital Signs - 24 hr 09/04/23 12:21 09/04/23 14:40 09/04/23 17:44 Temperature 97.5 F 98.9 F Pulse Rate 73 70 69 Respiratory Rate 17 12 18 Blood Pressure 187/73 H 110/67 109/73 Pulse Oximetry 99 100 98 Oxygen Delivery Method Room Air Room Air 09/04/23 20:21 Temperature 98.3 F Pulse Rate 60 Respiratory Rate 16 Blood Pressure 104/62 Pulse Oximetry 99 Oxygen Delivery Method Room Air BMI result Body Mass Index 22.1 Appearance: Alert. Oriented X3. No acute distress. Eyes: No pallor or icterus ENT: Pharynx normal. Oral Mucosa moist Neck: Normal inspection. Neck supple. CVS: Normal heart rate and rhythm. Pulses normal. Respiratory: No respiratory distress. Equal air entry bilateral, Abdomen: Soft , mild deep tenderness left lower abdomen Bowel sounds are present, no mass palpable, no CVA tenderness Skin: Skin warm and dry. Normal skin color. Normal skin turgor. Extremities: No lower extremity edema. No calf tenderness Neuro: Oriented X 3. Course Course Course Narrative: RME: 37 yold female with past medical history of Crohn's presents to ED for constipation for 4 days with abdominal pain. Patient states no nausea vomiting. Patient denies any genitourinary symptoms. Labs KUB ordered. Patient had its hysterectomy Medications Administered Discontinued Medications Generic Name Dose Route Start Last Admin Trade Name Freq PRN Reason Stop Dose Admin Sodium Chloride 1,000 mls @ 999 mls/hr 09/04/23 19:23 09/04/23 19:50 Ns IV 09/04/23 20:23 999 mls/hr .Q1H1M ONE Administration Ondansetron HCl 4 mg 09/04/23 19:23 09/04/23 19:50 Ondansetron Hcl 4 Mg/2 Ml Vial IVPUSH 09/04/23 19:24 4 mg ONCE ONE Administration Medical Decision Making Medical Decision Making [facility] Narrative: Patient is stable labs normal CRP level no abdominal distention KUB negative patient advised to follow-up with a retail client solutions analyst Lab Data MDM Lab Attestation statement: I reviewed the patient's lab results. 09/04/23 14:17 09/04/23 14:17 Labs: Lab Results 09/04/23 09/04/23 Range/Units 14:14 14:17 WBC 5.7 (4.8-10.8) X10*3/uL RBC 4.81 (4.20-5.50) X10*6/uL Hgb 14.3 (12.0-16.0) g/dl Hct 40.9 (37.0-47.0) % MCV 85.0 (80.0-98.0) fL MCH 29.7 (27.0-33.0) pg MCHC 35.0 (31.0-35.0) g/dl RDW 11.1 (11.0-16.0) % Plt Count 290 (160-400) X10*3/uL MPV 8.6 L (9.4-12.3) fL Immature Gran % (Auto) 0.0 (0.0-0.4) % Neut % (Auto) 53.7 (45-73) % Lymph % (Auto) 34.6 (20-40) % [place] % (Auto) 7.7 (2-11) % Eos % (Auto) 3.0 (0-4) % Baso % (Auto) 1.0 (0-2) % Lymph # (Auto) 2.0 (1.2-4.9) X10*3/uL [place] # (Auto) 0.4 (0.1-1.2) X10*3/uL Eos # (Auto) 0.2 (0.0-0.4) X10*3/uL Baso # (Auto) 0.1 (0.0-0.2) X10*3/uL Abs Immat Gran (auto) 0.00 (0.00-0.03) X10*3/uL Absolute Neuts (auto) 3.1 (2.0-8.3) x10*3/uL Absolute Nucleated RBC 0.000 (0.0-0.012) X10*3/uL Nucleated RBC % (auto) 0.0 (0.0-0.2) /100WBC PT 12.8 (11.1-13.3) SEC INR 1.1 (0.9-1.1) APTT 33.1 (26.0-36.8) SEC Sodium 139 (135-145) mmol/L Potassium 4.7 (3.3-5.1) mmol/L Chloride 103 (96-108) mmol/L Carbon Dioxide 28 (22-29) mmol/L Anion Gap 13 (12-20) BUN 8 L (9-16) mg/dL Creatinine 0.71 (0.5-1.4) mg/dL Estim Creat Clear Calc 97.6 Estimated GFR > 60 Random Glucose 80 (60-115) mg/dL Calcium 9.8 (8.4-10.2) mg/dL Total Bilirubin 0.7 (0.0-1.0) mg/dL AST 20 (5-31) U/L ALT 13 (0-31) U/L Alkaline Phosphatase 43 (39-117) U/L C-Reactive Protein < 0.10 (< or = 0.50) mg/dL Total Protein 7.6 (6.5-8.0) g/dL Albumin 4.5 (3.5-5.0) g/dL Lipase 28 (8-78) U/L Beta HCG, Quant < 2 mIU/mL Urine Color Yellow Urine Appearance Clear Urine pH 5.5 (5.0-9.0) Ur Specific Peck 1.010 (1.005-1.025) Urine Protein Negative (Neg-Trace) mg/dL Urine Glucose (UA) Negative (Negative) mg/dL Urine Ketones Trace (Negative) mg/dL Urine Blood Negative (Negative) Urine Nitrite Negative (Negative) Ur Leukocyte Esterase Negative (Negative) Urine Test NEGATIVE (NEGATIVE) Discharge Plan Discharge Clinical Impression: Abdominal pain, Constipation Patient Disposition: Home, Self-Care Instructions: Constipation (ED), Abdominal Pain (ED) Additional Instructions: Drink plenty of fluids Medicine for nausea as prescribed Follow with your GI Prescriptions: New ondansetron 4 mg tablet,disintegrating 4 mg PO Q6-8H PRN (Reason: nausea and vomiting) Qty: 15 0RF No Action mesalamine [Apriso] 0.375 gram capsule,extended release 24hr 1.5 g PO QAM 90 Days Qty: 360 1RF albuterol sulfate [Ventolin HFA] 90 mcg/actuation Hfa Aerosol Inhaler 2 puff INHALATION Q4-6H PRN (Reason: Shortness Of Breath) pantoprazole 20 mg tablet,delayed release (DR/EC) 20 mg PO DAILY Qty: 90 0RF valacyclovir 1 gram tablet 4,000 mg PO ONCE Interventions: ED Discharge Assessment Last Done: 09/04/23 20:41 Discharge Date/Time: 09/04/23 20:41
[2023-09-04 14:21] LABS: MANUAL DIFF FLAG NO
[2023-09-04 14:24] LABS: Basophils Absolute Auto 0.1 X10*3/uL (0.0-0.2); Eosinophils Absolute Auto 0.2 X10*3/uL (0.0-0.4); Hematocrit 40.9 % (37.0-47.0); Hemoglobin 14.3 g/dl (12.0-16.0); Lymphocytes Percent Auto 34.6 % (20-40); Mean Corpuscular Hemoglobin 29.7 pg (27.0-33.0); Mean Platelet Volume 8.6 fL (9.4-12.3); Monocytes Absolute Auto 0.4 X10*3/uL (0.1-1.2); Monocytes Percent Auto 7.7 % (2-11); Neutrophils Absolute Auto 3.1 x10*3/uL (2.0-8.3); Neutrophils Percent Auto 53.7 % (45-73); Platelet Count 290 X10*3/uL (160-400); Red Blood Count 4.81 X10*6/uL (4.20-5.50); Red Cell Distribution Width 11.1 % (11.0-16.0); White Blood Count 5.7 X10*3/uL (4.8-10.8)
[2023-09-04 14:25] LABS: Appearance Urine Clear; Color Urine Yellow; Glucose Urine UA Negative (Negative); Leukocyte Esterase Urine Negative (Negative); Nitrite Urine Negative (Negative); PH 5.5 (5.0-9.0); Urine Blood Negative (Negative); Urine Ketones Trace mg/dL (Negative); Urine Protein Negative (Neg-Trace)
[2023-09-04 14:26] LABS: UPreg QC Valid YES; Urine Pregnancy NEGATIVE (NEGATIVE)
[2023-09-04 14:30] LABS: INTERNATIONAL NORM RATIO 1.1 (0.9-1.1); Prothrombin Time 12.8 SEC (11.1-13.3)
[2023-09-04 14:33] LABS: Partial Thromboplastin Time 33.1 SEC (26.0-36.8)
[2023-09-04 14:40] VITALS: BP 110/67; PULSE 70; RESP 12; O2SAT 100
[2023-09-04 14:44] LABS: Alanine Aminotransferase 13 U/L (0-31); Albumin Level 4.5 g/dL (3.5-5.0); Alkaline Phosphatase 43 U/L (39-117); Anion Gap 13 (12-20); Aspartate Amino Transferase 20 U/L (5-31); Bilirubin Total 0.7 mg/dL (0.0-1.0); Blood Urea Nitrogen 8 mg/dL (9-16); Calcium 9.8 mg/dL (8.4-10.2); Carbon Dioxide 28 mmol/L (22-29); Chloride 103 mmol/L (96-108); Creatinine Clr Calc Pharmacy 97.6; Estimated Glomerular Filt Rate > 60; Glucose Random 80 mg/dL (60-115); HCG Quantitative < 2 mIU/mL; Lipase 28 U/L (8-78); Potassium 4.7 mmol/L (3.3-5.1); Sodium 139 mmol/L (135-145); Total Protein 7.6 g/dL (6.5-8.0)
[2023-09-04 17:44] VITALS: BP 109/73; PULSE 69; RESP 18; TEMP 37.2; O2SAT 98
--- NOTE | 2023-09-04 17:48 | PC.NURSE ---
Patient concerned that when she gets back to see a provider that nothing would be getting done for her. Patient spoke with triage provider who states that patient should be getting a CT with contrast for which she would need to be in a bed before getting the IV. Patient receptive to this and agreeable to care.
[2023-09-04 19:36] LABS: C Reactive Protein < 0.10 mg/dL (< or = 0.50)
[2023-09-04] MEDS: ondansetron HCL 4 MG/2 ML VIAL IVPUSH (19:50)
[2023-09-04] MEDS: 0.9 % Sodium Chloride 1,000 ML 999 ML IV (19:50)
[2023-09-04 20:21] VITALS: BP 104/62; PULSE 60; RESP 16; TEMP 36.8; O2SAT 99
--- NOTE | 2023-09-04 20:24 | MHC.EDTECH ---
This tech took over care of patient at 1900,hourly rounds and vitals completed,patient is waiting to be discharge at this time.
== END 2023-09-04 20:41 | disposition home or self-care (01) ==
PROVIDERS: Physician Assistant; Emergency Provider Internal Medicine
DX: K59.00 Constipation, unspecified (principal); R10.32 Left lower quadrant pain; Z79.899 Other long term (current) drug therapy
CPT/HCPCS: 36415; 74018; 80053; 81003; 81025; 83690; 84702; 85025; 85610; 85730; 86140; 96374; 99284; J2405

== ENCOUNTER 2023-09-26 09:34 | Outpatient (AMB) | payer OTHER, SELFPAY ==
--- NOTE | 2023-09-26 09:37 | MHC.OFFVIS ---
Intake Vital Signs 09/26/23 09:39 Height 5 ft 5 in Weight 134 lb 7.712 oz BMI 22.4 BP 112/63 Blood Pressure Location Lt brachial Position Sitting Pulse 63 Intake Visit Reasons: 3 month follow up Intake Note: Hillary presents in the office as a 3 month follow up. CC: She states that she spoke with you last week - she was in the ED and she was constipated for weeks. She states that she was told to take laxatives. CT scan is scheduled this week on . Allergies sulfamethoxazole [From Bactrim] Adverse Reaction (Severe, Verified 09/26/23 09:39) nausea/vomiting/severe GI pain trimethoprim [From Bactrim] Adverse Reaction (Severe, Verified 09/26/23 09:39) nausea/vomiting/severe GI pain hydrocodone Adverse Reaction (Intermediate, Verified 09/26/23 09:39) Nausea and Vomiting HPI 3 month follow up HPI Details 37 yr old f here for f/u RECAP: CT: 05/21: enteritis, constipation EGD/colon: gastritis, esophagitis, ileitis, erosions VCE: patchy erythema MRE: 08/2022--- nml TESTS: fecal lactoferrin: nml RAST neg INTERIM: she had been apriso and she did not feel it did anything she had some severe constipation better now still has occ blue hands and feet not had canker sore for a while hip pain is back again not heard anything for Mr defecography finishing nursing school soon EXAM: GENERAL: The patient is well developed and nontoxic. VITAL SIGNS:see workflow HEENT: Nonicteric sclerae, PERRLA, EOMI. Oropharynx clear. Moist mucous membranes. Conjunctivae appear well perfused. No thyroid mass. CHEST: Chest wall is nontender. HEART: Regular rate and rhythm without murmurs. LUNGS: Clear to auscultation bilaterally. ABDOMEN: Soft, positive bowel sounds, non tender epigastrium, no organomegaly.no flank tenderness SKIN: No rash, no excessive bruising, petechiae, or purpura. NEUROLOGIC: Cranial nerves II-XII intact without motor/sensory deficit. A/P: 1/ main concern still is subacute/simmering crohns, ddx: eosinophilic enteritis, autoimmune enteritis, less likely infiltrative disease like amyloid,s lupus, lymphoma--she may also have pelvic floor dysfn or rectocele related to prior c section--Mr defecography was ordered still not done PLAN: 1/ might consider trial of entyvio or budesonide 2/ await MR defecography 3/ CT also pending [facility] Medical History History of infection due to ESBL Klebsiella oxytoca History of in vitro fertilization GERD (gastroesophageal reflux disease) COVID-19 vaccine series completed Asthma DIC (disseminated intravascular coagulation) Paronychia Surgical History Hx of colonoscopy History of esophagogastroduodenoscopy (EGD) Hx of wisdom tooth extraction H/O: hysterectomy Social History Are you a primary day care home provider to a significant other at home: No Do you presently have visiting nurse or other home services: No Alcohol intake: current Patient Tobacco Use Status: Never used Tobacco Current occupational status: employed Current occupation: FT Physical Exam Vital Signs: Last Vital Signs Pulse 63 09/26/23 09:39 BP 112/63 09/26/23 09:39 BMI result Body Mass Index 22.4 Assessment & Plan Assessment & Plan (1) Enteropathy: Code(s): K63.9 - Disease of intestine, unspecified Plan: A/P: 1/ main concern still is subacute/simmering crohns, ddx: eosinophilic enteritis, autoimmune enteritis, less likely infiltrative disease like amyloid,s lupus, lymphoma--she may also have pelvic floor dysfn or rectocele related to prior c section--Mr defecography was ordered still not done PLAN: 1/ might consider trial of entyvio or budesonide 2/ await MR defecography 3/ CT also pending Coding Level of Care Code Est Pt Level 3 (24087) Diagnoses Enteropathy K63.9
[2023-09-26 09:39] VITALS: BP 112/63; PULSE 63; BMI 22.4
== END 2023-09-26 10:10 | disposition home or self-care (01) ==
PROVIDERS: PCP Nurse Practitioner Family; Visit Provider Internal Medicine Gastroenterology
DX: K63.9 Disease of intestine, unspecified (principal)
CPT/HCPCS: 99213

== ENCOUNTER → 2023-09-26 09:34 | Outpatient (BNVA) | payer OTHER, SELFPAY | PROVIDERS: PCP Nurse Practitioner Family; Visit Provider Internal Medicine Gastroenterology ==

== ENCOUNTER 2023-12-09 08:33 | Outpatient (AMB) | payer OTHER, SELFPAY ==
--- NOTE | 2023-12-15 11:55 | MHC.OFFVIS ---
Intake Visit Reasons: CAPSULE ENDOSCOPY Allergies sulfamethoxazole [From Bactrim] Adverse Reaction (Severe, Verified 09/26/23 09:39) nausea/vomiting/severe GI pain trimethoprim [From Bactrim] Adverse Reaction (Severe, Verified 09/26/23 09:39) nausea/vomiting/severe GI pain hydrocodone Adverse Reaction (Intermediate, Verified 09/26/23 09:39) Nausea and Vomiting PFSH Medical History History of infection due to ESBL Klebsiella oxytoca History of in vitro fertilization GERD (gastroesophageal reflux disease) COVID-19 vaccine series completed Asthma DIC (disseminated intravascular coagulation) Paronychia Surgical History Hx of colonoscopy History of esophagogastroduodenoscopy (EGD) Hx of wisdom tooth extraction H/O: hysterectomy Social History Are you a primary healthcare risk control consultant to a significant other at home: No Do you presently have visiting nurse or other home services: No Alcohol intake: current Patient Tobacco Use Status: Never used Tobacco Current occupational status: employed Current occupation: FT Office Procedures AMB Capsule Endoscopy Procedure Notes: Capsule Endoscopy: Date of Service:12/08/23 Indication: abdominal pain r/o IBD Findings: lower esophagus appeared normal. Stomach mucosa normal, Small bowel first seen at 2 mins. Good views with normal appearing mucosa, cecum was not reached Conclusion: normal study, cecum not seen Capsule Endoscopy CPT Code: 58786 - Capsule Endoscopy Assessment & Plan Assessment & Plan (1) Abdominal pain: Code(s): R10.9 - Unspecified abdominal pain Category: Medical Plan: see report Coding Level of Care Code Procedure Only Diagnoses Abdominal pain R10.9 CPT Codes AMB Capsule Endoscopy - Capsule Endoscopy CPT Code: 72527 - Capsule Endoscopy ([id number])
== END 2023-12-09 08:45 | disposition home or self-care (01) ==
PROVIDERS: PCP Nurse Practitioner Family; Visit Provider Internal Medicine Gastroenterology
DX: R10.9 Unspecified abdominal pain (principal)
CPT/HCPCS: 91110

== ENCOUNTER → 2023-12-09 08:33 | Outpatient (BNVA) | payer SELFPAY | PROVIDERS: PCP Nurse Practitioner Family; Visit Provider Internal Medicine Gastroenterology | DX: R10.9 Unspecified abdominal pain (principal) | CPT/HCPCS: 91110 ==